=== PATIENT | female | born 1985 | race Caucasian/White ===

== ENCOUNTER → 2021-06-14 13:50 | Outpatient (CLI) | payer OTHER, SELFPAY ==
--- NOTE | ~2021-06-14 | US_ITS ---
US thyroid INDICATION: Nontoxic thyroid goiter TECHNIQUE: Real-time sonographic images of the thyroid gland were obtained. COMPARISON: No prior studies for comparison. FINDINGS: The right thyroid lobe measures 5.1 x 1.5 x 1.5 cm. The left thyroid lobe measures 5.6 x 1 .3 x 1.5 cm. Diffusely heterogeneous thyroid echotexture with multiple small hypoechoic nodules throu ghout both lobes measuring 5 mm or less, consistent with multinodular goiter. No suspicious masses to suggest malignancy. Isthmus measures 3 mm. Normal vascular flow is present. IMPRESSION: 1. Heterogeneous enlarged thyroid gland containing multiple small nodules measuring 5 mm or less, co mpatible with benign multinodular goiter. Reviewed, dictated and finalized at location A. IMPRESSION: 1. Heterogeneous enlarged thyroid gland containing multiple small nodules sona uring 5 mm or less, compatible with benign multinodular goiter.
== END ==
PROVIDERS: PCP Family Medicine; Visit Provider Family Medicine
DX: E04.2 Nontoxic multinodular goiter (principal)
CPT/HCPCS: 76536

== ENCOUNTER → 2022-11-28 07:08 | Outpatient (CLI) | payer OTHER, SELFPAY ==
--- NOTE | ~2022-11-28 | MR_ITS ---
EXAMINATION: MR knee LT wo con DATE: 11/28/2022 08:24 INDICATION: Left knee pain TECHNIQUE: Magnetic resonance imaging (MRI) of the left knee was performed without intravenous contra st. Sequences included coronal PD-weighted FSE, coronal PD-weighted FS FSE, sagittal T2-weighted FSE , sagittal PD-weighted FS FSE and axial PD weighted fat saturated FSE. COMPARISON: None. FINDINGS: Medial compartment: Medial meniscus is normal. Articular cartilage is normal. Lateral compartment: Lateral meniscus is normal. Articular cartilage is normal. Patellofemoral compartment: Small region of partial-thickness chondral fissuring along the inferior aspect of the medial trochlea and subtle chondral surface irregularity at the medial patellar facet. Ligaments and tendons: Anterior and posterior cruciate ligaments are normal. The medial collateral ligament and fibular ashutosh ateral ligament complex are normal. The extensor mechanism is normal. The visualized medial and later al hamstring tendons as well as the iliotibial band are normal. Fluid: Physiologic amount of fluid in the joint space. No loose osteochondral bodies identified. Osseous/other: Normal marrow signal. No fracture or pathologic marrow replacing process. IMPRESSION: 1. 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 Reviewed, dictated and finalized at location B. IMPRESSION: 1. Mild patellofemoral osteoarthritis with small regions of moderate grade gloria dromalacia at the medial aspect of the patellofemoral compartment.
--- NOTE | ~2022-11-28 | MR_ITS ---
MRI of the brain Clinical History: Weakness, headache Technique: Axial and sagittal T1-weighted images were acquired. These were followed by axial T2-weigh cristian, diffusion weighted, gradient, and FLAIR images. Axial and coronal thin cut T1-weighted and T2 fa t-sat images were also performed through the orbits. Following intravenous administration of 15 cc Mu ltiHance gadolinium, T1-weighted fat-sat imaging was performed through the brain in the axial and cor onal planes. Axial and coronal thin cut T1-weighted fat-sat postcontrast imaging also performed throu gh the orbits. Findings: There is no acute infarct, intracranial hemorrhage, or mass lesion. No signal abnormality s een in the brain parenchyma. Ventricles and subarachnoid spaces are unremarkable. Paranasal sinuses and mastoid air cells are falguni r. Major intracranial flow voids appear intact. Eye globes are symmetric in size and position. Extraocular muscles are unremarkable. Optic nerve gonzalez th complexes are unremarkable. No intraorbital mass lesion identified. Interval fat is unremarkable. Sagittal midline structures are intact. No abnormal postcontrast enhancement identified. IMPRESSION: Unremarkable MRI of the brain and orbits. Reviewed, dictated and finalized at location .
== END ==
PROVIDERS: PCP Family Medicine; Visit Provider Family Medicine
DX: R53.83 Other fatigue (principal); R20.2 Paresthesia of skin; M17.12 Unilateral primary osteoarthritis, left knee
CPT/HCPCS: 70553; 73721; A9577

== ENCOUNTER 2024-11-08 11:30 | Outpatient (CLI) | payer OTHER, SELFPAY ==
--- NOTE | ~2024-11-08 | US_ITS ---
EXAM: ABDOMEN ULTRASOUND HISTORY: K81.9 - Cholecystitis, unspecified COMPARISON: None FINDINGS: LIVER: The liver is unremarkable in echogenicity and size measuring 15 cm in longitudinal dimension. The contour of the liver surface is smooth. The portal vein is patent demonstrating hepatopedal flow. GALLBLADDER: No stones are identified within the gallbladder, which is otherwise unremarkable. No gallbladder wall thickening or pericholecystic fluid. BILE DUCTS: Common bile duct measures 4.4mm. PANCREAS: Limited evaluation of the pancreas secondary to overlying bowel gas VASCULATURE : The abdominal aorta is nonaneurysmal. The IVC is patent. IMPRESSION: No stones are identified within the gallbladder which is otherwise unremarkable.. Limited evaluation of the pancreas secondary to overlying bowel gas Reviewed, dictated and finalized at location A. 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 Limited evaluation of the pancreas secondary to overlying bowel gas
== END 2024-11-08 11:31 | disposition home or self-care (01) ==
LOC: MICIMG 11:31
PROVIDERS: PCP Family Medicine; Visit Provider Surgery
DX: K81.9 Cholecystitis, unspecified (principal)
CPT/HCPCS: 76705

== ENCOUNTER 2024-11-11 08:31 | Outpatient (CLI) | payer OTHER, SELFPAY | END 2024-11-11 08:32 | disposition home or self-care (01) | LOC: ANHIMG 08:34 | PROVIDERS: PCP Family Medicine; Visit Provider Surgery | DX: K81.9 Cholecystitis, unspecified (principal) | CPT/HCPCS: 78227; A9537; J2805 ==